=== PATIENT | male | born 1995 | race Caucasian/White ===

== ENCOUNTER 2018-09-05 14:34 | Emergency (ER) | payer OTHER, MEDICAID ==
[~2018-09-05] VITALS: Ht 172.7 cm; Wt 63.5 kg
[2018-09-05 14:40] VITALS: BP_SYST 115
== END 2018-09-05 15:57 | disposition home or self-care (01) ==
LOC: SED 14:34
DX: R05 Cough (principal); R03.0 Elevated blood-pressure reading, without diagnosis of hypertension; J45.909 Unspecified asthma, uncomplicated; Z88.0 Allergy status to penicillin
CPT/HCPCS: 36415; 71045; 86710; 99284

== ENCOUNTER 2018-09-11 17:41 | Emergency (ER) | payer OTHER, MEDICAID ==
[~2018-09-11] VITALS: Ht 172.7 cm; Wt 63.5 kg
[2018-09-11 17:41] VITALS: BP_SYST 112
[2018-09-11] MEDS ORDERED: IPRATROPIUM/ALBUTEROL SULFATE 3 ML AMPUL.NEB (DUONEB) INH ONE (18:00)
[2018-09-11 19:15] VITALS: BP_SYST 116
== END 2018-09-11 19:15 | disposition home or self-care (01) ==
LOC: SED 17:41
DX: J20.9 Acute bronchitis, unspecified (principal); R03.0 Elevated blood-pressure reading, without diagnosis of hypertension; J45.909 Unspecified asthma, uncomplicated; F17.200 Nicotine dependence, unspecified, uncomplicated; Z88.0 Allergy status to penicillin
CPT/HCPCS: 71045; 94640; 99283; J7620

== ENCOUNTER 2021-05-25 21:55 | Emergency (ER) | payer OTHER, SELFPAY ==
[~2021-05-25] VITALS: Ht 172.7 cm; Wt 63.5 kg
[2021-05-25 21:55] VITALS: BP_SYST 121
--- NOTE | 2021-05-26 00:55 | NUR ---
ER in tent examining patient.
[2021-05-26] MEDS ORDERED: D-ME118S48 PO (01:02)
[2021-05-26] MEDS ORDERED: OSEL75CA PO (01:02)
[2021-05-26 01:20] VITALS: BP_SYST 120
--- NOTE | 2021-05-26 01:20 | NUR ---
Patient given written and verbal discharge instructions and verbalizes understanding. ER MD discussed with patient the results and treatment provided. Patient in stable condition. Rx of Bromphen DM and Tamiflu given. Patient educated on pain management and to follow up with PMD. Pain Scale 4/10. Opportunity for questions provided and answered.
== END 2021-05-26 01:20 | disposition home or self-care (01) ==
LOC: SED 21:55
DX: J11.1 Influenza due to unidentified influenza virus with other respiratory manifestations (principal); Z20.822 Contact with and (suspected) exposure to COVID-19
CPT/HCPCS: 36415; 71045; 86710; 99284

== ENCOUNTER 2023-07-01 23:47 | Emergency (ER) | payer OTHER, MEDICAID ==
[~2023-07-01] VITALS: Ht 172.7 cm; Wt 65.8 kg
[~2023-07-01 23:47] MED LIST: BROM118S61 PO; OSEL75CA PO
[2023-07-01 23:55] VITALS: BP_SYST 136; PULSE 88; RESP 16; TEMP 97.7; O2SAT 99
[2023-07-02] MEDS ORDERED: ACETAMINOPHEN 500 MG TABLET PO ONE (00:15)
[2023-07-02] MEDS ORDERED: methocarbamoL 500 MG TABLET PO ONE (00:15)
[2023-07-02 01:04] LABS: BILIRUBIN,URINE NEGATIVE (NEGATIVE); COLOR,URINE YELLOW (YELLOW); GLUCOSE,URINE NEGATIVE (NEGATIVE); KETONES,URINE TRACE (NEGATIVE); LEUKOCYTE ESTERASE ,URINE NEGATIVE (NEGATIVE); NITRITE, URINE NEGATIVE (NEGATIVE); PROTEIN URINE NEGATIVE (NEGATIVE); UROBILINOGEN,URINE 0.2 (0.2-1.0)
[2023-07-02 01:18] LABS: BASOPHILS % (AUTO) 0.4 % (0.0-2.0); EOSINOPHILS # (AUTO) 0.3 K/uL (0.0-0.4); EOSINOPHILS % (AUTO) 2.5 % (0.0-4.0); HEMATOCRIT 41.7 % (36-54); HEMOGLOBIN 14.8 g/dL (14.0-18.0); LYMPHOCYTES # (AUTO) 2.5 K/uL (1.0-5.5); LYMPHOCYTES % (AUTO) 23.5 % (20.5-51.5); MEAN CORPUSCULAR HEMOGLOBIN 29 pg (27-31); MEAN CORPUSCULAR HGB CONC 35 % (32-36); MEAN CORPUSCULAR VOLUME 82 fL (79.0-98.0); MONOCYTES # (AUTO) 0.7 K/uL (0.0-1.0); MONOCYTES % (AUTO) 6.5 % (1.7-9.3); NEUTROPHILS # (AUTO) 7.1 K/uL (1.8-7.7); NEUTROPHILS % (AUTO) 67.1 % (40.0-70.0); PLATELET COUNT (AUTO) 245 K/uL (130-430); RED BLOOD CELL COUNT(AUTO) 5.09 MIL/uL (4.2-6.2); RED CELL DISTRIBUTION WIDTH 13.2 % (9.0-15.0); WHITE BLOOD COUNT (AUTO) 10.6 K/uL (4.8-10.8)
[2023-07-02 01:23] LABS: ALBUMIN 3.7 g/dL (3.4-4.8); CALCIUM 8.5 mg/dL (8.4-11.0); CREATININE 1.17 mg/dL (0.55-1.30); POTASSIUM 3.5 mmol/L (3.5-5.1); TOTAL BILIRUBIN 0.4 mg/dL (0.0-1.0); TOTAL PROTEIN, SERUM 7.3 g/dL (6.4-8.3)
[2023-07-02 01:35] LABS: BLOOD, URINE TRACE (NEGATIVE); CLARITY/URINE HAZY (CLEAR)
[2023-07-02 01:41] LABS: BACTERIA,URINE None Seen /HPF (None Seen); WBC,URINE 0-3 /HPF (0-3)
[2023-07-02] MEDS ORDERED: NACL 0.9% 1,000 ML IV ONE (01:45)
[2023-07-02] MEDS ORDERED: METH-634 PO (03:40)
[2023-07-02 03:53] VITALS: BP_SYST 136; PULSE 88; RESP 16; TEMP 97.7; O2SAT 99
== END 2023-07-02 03:53 | disposition home or self-care (01) ==
LOC: SED 23:47
DX: S39.91XA Unspecified injury of abdomen, initial encounter (principal); J45.909 Unspecified asthma, uncomplicated; Z88.0 Allergy status to penicillin; Z79.899 Other long term (current) drug therapy; W17.89XA Other fall from one level to another, initial encounter; Y93.89 Activity, other specified; Y92.89 Other specified places as the place of occurrence of the external cause; Y99.8 Other external cause status
CPT/HCPCS: 99285; 80053; 81001; 83690; 85025; 36415; 81000; 74177; 96360; 76376; 81015; Q9967; J7030